=== PATIENT | female | born 1985 | race American Indian/Alaskan Native ===

== ENCOUNTER 2020-06-12 21:19 | Emergency (ER) | payer SELFPAY ==
--- NOTE | 2020-06-12 23:51 | Emergency Department Report ---
<GISELA BAR - Last Filed: 06/13/20 05:24> ED Chest Pain HPI - General Chief Complaint: Chest Pain Stated Complaint: CHEST PAIN PUI?: No Time Seen by Provider: 06/12/20 23:35 - Related Data Allergies Allergy/AdvReac Type Severity Reaction Status Date / Time No Known Allergies Allergy Unverified 06/12/20 22:38 ED Course - Reevaluation(s) Reevaluation #1: 06/13/20 03:16 Patient resting comfortably at this time, in no acute distress. CT scan of the chest negative for acute findings. Vital signs have remained stable. EKG unremarkable. Patient at low risk for major adverse cardiac event as per heart score. Patient suitable for discharge at this time with outpatient follow-up. MIN score - Min Score Age > 65: (0) No Aspirin use within the Past 7 Days: (0) No 3 or more CAD Risk Factors: (0) No 2 or more Angina events in past 24 hrs: (0) No Known CAD with more than 50% Stenosis: (0) No Elevated Cardiac Markers: (0) No ST Deviation Greater than 0.5mm: (0) No MIN Score: 0 ED Medical Decision Making - Lab Data Result diagrams: 06/12/20 23:48 06/12/20 23:48 Vital Signs 06/12/20 06/12/20 06/13/20 22:38 23:40 01:00 Temperature 98.2 F Pulse Rate 81 66 71 Respiratory 18 17 22 Rate Blood Pressure 129/82 135/79 127/75 [Right] O2 Sat by Pulse 100 100 100 Oximetry 06/13/20 02:57 Temperature Pulse Rate 82 Respiratory 16 Rate Blood Pressure 114/72 [Right] O2 Sat by Pulse 100 Oximetry Lab Results 06/12/20 06/12/20 06/12/20 Range/Units 23:48 23:48 23:48 WBC 8.0 (4.5-11.0) K/mm3 RBC 4.19 (3.65-5.03) M/mm3 Hgb 12.8 (10.1-14.3) gm/dl Hct 37.6 (30.3-42.9) % MCV 90 (79-97) fl MCH 31 (28-32) pg MCHC 34 (30-34) % RDW 14.0 (13.2-15.2) % Plt Count 248 (140-440) K/mm3 Lymph % (Auto) 50.9 H (13.4-35.0) % [place] % (Auto) 8.0 H (0.0-7.3) % Eos % (Auto) 3.1 (0.0-4.3) % Baso % (Auto) 0.6 (0.0-1.8) % Lymph # (Auto) 4.1 (1.2-5.4) K/mm3 [place] # (Auto) 0.6 (0.0-0.8) K/mm3 Eos # (Auto) 0.2 (0.0-0.4) K/mm3 Baso # (Auto) 0.0 (0.0-0.1) K/mm3 Seg Neutrophils % 37.4 L (40.0-70.0) % Seg Neutrophils # 3.0 (1.8-7.7) K/mm3 D-Dimer 256.70 H (0-234) ng/mlDDU Sodium 138 (137-145) mmol/L Potassium 3.8 (3.6-5.0) mmol/L Chloride 100.2 (98-107) mmol/L Carbon Dioxide 28 (22-30) mmol/L Anion Gap 14 mmol/L BUN 11 (7-17) mg/dL Creatinine 0.8 (0.6-1.2) mg/dL Estimated GFR > 60 ml/min BUN/Creatinine Ratio 14 % Glucose 88 (65-100) mg/dL Calcium 9.8 (8.4-10.2) mg/dL Total Bilirubin 0.30 (0.1-1.2) mg/dL AST 22 (5-40) units/L ALT 26 (7-56) units/L Alkaline Phosphatase 83 (35-129) units/L Troponin T < 0.010 (0.00-0.029) ng/mL Total Protein 7.4 (6.3-8.2) g/dL Albumin 4.8 (3.9-5) g/dL Albumin/Globulin Ratio 1.8 % HCG, Qual (Negative) 06/12/20 Range/Units 23:48 WBC (4.5-11.0) K/mm3 RBC (3.65-5.03) M/mm3 Hgb (10.1-14.3) gm/dl Hct (30.3-42.9) % MCV (79-97) fl MCH (28-32) pg MCHC (30-34) % RDW (13.2-15.2) % Plt Count (140-440) K/mm3 Lymph % (Auto) (13.4-35.0) % [place] % (Auto) (0.0-7.3) % Eos % (Auto) (0.0-4.3) % Baso % (Auto) (0.0-1.8) % Lymph # (Auto) (1.2-5.4) K/mm3 [place] # (Auto) (0.0-0.8) K/mm3 Eos # (Auto) (0.0-0.4) K/mm3 Baso # (Auto) (0.0-0.1) K/mm3 Seg Neutrophils % (40.0-70.0) % Seg Neutrophils # (1.8-7.7) K/mm3 D-Dimer (0-234) ng/mlDDU Sodium (137-145) mmol/L Potassium (3.6-5.0) mmol/L Chloride (98-107) mmol/L Carbon Dioxide (22-30) mmol/L Anion Gap mmol/L BUN (7-17) mg/dL Creatinine (0.6-1.2) mg/dL Estimated GFR ml/min BUN/Creatinine Ratio % Glucose (65-100) mg/dL Calcium (8.4-10.2) mg/dL Total Bilirubin (0.1-1.2) mg/dL AST (5-40) units/L ALT (7-56) units/L Alkaline Phosphatase (35-129) units/L Troponin T (0.00-0.029) ng/mL Total Protein (6.3-8.2) g/dL Albumin (3.9-5) g/dL Albumin/Globulin Ratio % HCG, Qual Negative (Negative) - Radiology Data Radiology results: report reviewed, image reviewed [facility] [address] [place] [address] Cat Scan Report Signed Patient: JARRETT SALAS MR#: [id number] [birth year] : 1985 Acct:[id number] Age/Sex: 34 / F ADM Date: 06/12/20 Loc: ED Attending Dr: Ordering Physician: GURPREET SANTOS DO Date of Service: 06/13/20 Procedure(s): CT angio chest Accession Number(s): [id number] cc: GURPREET SANTOS DO CTA CHEST WITH CONTRAST INDICATION / CLINICAL INFORMATION: Patient complains of midsternal chest pains; elevated D-dimer. TECHNIQUE: Axial CT images were obtained through the chest after injection of 100 cc Omnipaque 350 IV contrast. 3 plane MIP and/or 3D reconstructions were produced. All CT scans at this location are performed using CT dose reduction for ALARA by means of automated exposure control. COMPARISON: None available. FINDINGS: PULMONARY ARTERIES: There is excellent opacification of the pulmonary arterial system bilaterally without intraluminal filling defect to suggest acute PTE. THORACIC AORTA: No significant abnormality. HEART: No significant abnormality. CORONARY ARTERY CALCIFICATION: None. MEDIASTINUM / MARIA ISABEL: No significant abnormality. PLEURA: No pleural effusion. No pneumothorax. LUNGS: No acute air space or interstitial disease. ADDITIONAL FINDINGS: None. UPPER ABDOMEN: No acute findings. SKELETAL STRUCTURES : No significant osseous abnormality. IMPRESSION: 1. No CT evidence for pulmonary embolism. 2. No acute findings. Signer Name: Danielito Phillips MD Signed: 06/13/2020 2:58 AM Workstation Name: [id number] Transcribed By: RT Dictated By: Danielito Phillips MD Electronically Authenticated By: Danielito Phillips MD Signed Date/Time: 06/13/20 0258 ED Disposition Clinical Impression: Chest pain Qualifiers: Chest pain type: unspecified Qualified Code(s): R07.9 - Chest pain, unspecified Disposition: DC-01 TO HOME OR SELFCARE Is pt being admited?: No Does the pt Need Aspirin: No Condition: Good Instructions: Nonspecific Chest Pain, Adult Additional Instructions: Please follow-up with a primary care physician in the next few days. I have sent your contact information over to the [facility], and someone from their office should be contacting you shortly for close outpatient follow-up. 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 Coy. Return to the emergency department with any worsening of your symptoms, new or concerning symptoms not addressed during this current emergency department v isit, or with any acute distress. Referrals: PRIMARY CAREMD [Primary Care Provider] - 2-3 Days JS COY MD [Staff Physician] - 2-3 Days <GURPREET SANTOS S - Last Filed: 06/13/20 16:03> ED Chest Pain HPI - General Source: patient Mode of arrival: Ambulatory Limitations: No Limitations - History of Present Illness Initial Comments: This is a 34-year-old -[place] Citizen female presents to the emergency department with a complaint of having some midsternal chest discomfort that started earlier in the afternoon, but has since resolved. She denies any shortness of breath, nausea, vomiting, diaphoresis, lower extremity swelling, back pain. When the chest pain occurred it was low to moderate intensity, about a 4 out of 10, and did not radiate. Patient says that she wanted to come in to get checked out as she did have concern for the possibility of a blood clot as she had tummy tuck surgery about 1 month ago and flew to and from the [facility] to have the surgery done. She did have some postop immobility for a while. She denies any tobacco or illicit drug use. There is no family history of early heart attack or cardiac events in her nuclear family. She did not take anything for her symptoms prior to presentation today. Heart Score - HEART Score History: Slightly suspicious EKG: Normal Age: < 45 Risk factors: No known risk factors Troponin: < normal limit HEART Score: 0 - EKG Read Time Time EKG Completed: 22:47 EKG Read Time: 22:52 - Critical Actions Critical Actions: 0-3 pts:0.9-1.7%risk of adverse cardiac event.Candidate for discharge ED Review of Systems ROS: Stated complaint: CHEST PAIN Other details as noted in HPI Comment: All other systems reviewed and negative Constitutional: denies: chills, fever Eyes: denies: eye pain, vision change ENT: denies: ear pain, throat pain Respiratory: denies: shortness of breath Cardiovascular: chest pain. denies: palpitations, edema Gastrointestinal: denies: abdominal pain, vomiting Genitourinary: denies: dysuria, discharge Musculoskeletal: denies: back pain, arthralgia Skin: denies: rash, lesions Neurological: denies: headache, weakness ED Past Medical Hx - Past Medical History Previous Medical History?: Yes ED Physical Exam - General Limitations: No Limitations - Other Other exam information: GENERAL: The patient is well-developed well-nourished. HENT: Normocephalic. Atraumatic. Patient has moist mucous membranes. EYES: Extraocular motions are intact. NECK: Supple. Trachea is midline. CHEST/LUNGS: Clear to auscultation. There is no respiratory distress noted. HEART/CARDIOVASCULAR: Regular. There is no tachycardia. There is no murmur. ABDOMEN: Abdomen is soft, nontender. Patient has normal bowel sounds. There is no abdominal distention. SKIN: Skin is warm and dry. No appreciable edema to the bilateral lower extremities. NEURO: The patient is awake, alert, and oriented. The patient is cooperative. The patient has no focal neurologic deficits. Normal speech. MUSCULOSKELETAL: There is no tenderness or deformity. There is no limitation range of motion. ED Course Vital Signs 06/12/20 06/12/20 06/13/20 22:38 23:40 01:00 Temperature 98.2 F Pulse Rate 81 66 71 Respiratory 18 17 22 Rate Blood Pressure 129/82 135/79 127/75 [Right] O2 Sat by Pulse 100 100 100 Oximetry 06/13/20 02:57 Temperature Pulse Rate 82 Respiratory 16 Rate Blood Pressure 114/72 [Right] O2 Sat by Pulse 100 Oximetry - Reevaluation(s) Reevaluation #1: 06/12/20 23:51 My plan for this patient is to get a CBC, metabolic panel, troponin and a D- dimer level. The EKG does not show any morphology consistent with ST ovation myocardial infarction. She does not have any risk factors for coronary artery disease. The patient does appear to have some risk factors for thromboembolic disease including recent travel, recent surgery with postop immobility, and having an IUD in place. If the D-dimer is elevated the patient will have either a CT angiography of the chest or a VQ scan. A chest x-ray has been ordered but I am waiting for the results of serum test. As the patient is currently asymptomatic she does not need any analgesia at this time. MIN score - Min Score Age > 65: (0) No Aspirin use within the Past 7 Days: (0) No 3 or more CAD Risk Factors: (0) No 2 or more Angina events in past 24 hrs: (0) No ED Medical Decision Making - Lab Data Result diagrams: 06/12/20 23:48 06/12/20 23:48 - EKG Data -: EKG Interpreted by Me EKG shows normal: sinus rhythm, axis, intervals, QRS complexes, ST-T waves Rate: normal - EKG Data When compared to previous EKG there are: previous EKG unavailable Interpretation: normal EKG - Radiology Data Radiology results: report reviewed - Medical Decision Making This patient presented to the emergency department with a complaint of having some midsternal chest pain earlier in the day. She does not have any significant risk factors for ACS/CAD but does have some risk factors for thromboembolic disease. EKG did not show any morphology consistent with ST elevation myocardial infarction. Chest x-ray does not show any acute process. Labs have been mostly unremarkable except for a very mild, slightly elevated and equivocal D-dimer level. For this reason the patient had a CT angiography of the chest that did not show any pulmonary embolism or any other acute process. Vital signs reassuring throughout her ED course. Her contact information has been sent over to the [facility], and someone from their office should be contacting her shortly for close outpatient follow-up as per our hospitals low risk chest pain protocol. Critical Care Time: No Critical care attestation.: If time is entered above; I have spent that time in minutes in the direct care of this critically ill patient, excluding procedure time. ED Disposition Is pt being admited?: No
[2020-06-13 00:37] LABS: Basophils % (Auto) 0.6 % (0.0-1.8); Eosinophils # (Auto) 0.2 K/mm3 (0.0-0.4); Eosinophils % (Auto) 3.1 % (0.0-4.3); Hematocrit 37.6 % (30.3-42.9); Hemoglobin 12.8 gm/dl (10.1-14.3); Lymphocytes # (Auto) 4.1 K/mm3 (1.2-5.4); Lymphocytes % (Auto) 50.9 % (13.4-35.0); Mean Corpuscular HGB Conc 34 % (30-34); Mean Corpuscular Volume 90 fl (79-97); Monocytes # (Auto) 0.6 K/mm3 (0.0-0.8); Platelet Count 248 K/mm3 (140-440); Red Blood Count 4.19 M/mm3 (3.65-5.03)
--- NOTE | 2020-06-13 01:33 | XRay Report ---
CHEST 1 VIEW 06/13/2020 12:23 AM INDICATION / CLINICAL INFORMATION: Chest pain and tightness starting today. COMPARISON: None available. FINDINGS: SUPPORT DEVICES: None. HEART / MEDIASTINUM: The heart size and pulmonary vasculature are normal. The aorta is normal in [place]. LUNGS / PLEURA: No significant pulmonary or pleural abnormality. No pneumothorax. ADDITIONAL FINDINGS: No significant additional findings. IMPRESSION: No acute findings. Signer Name: Danielito Phillips MD Signed: 06/13/2020 1:29 AM Workstation Name: [id number]
[2020-06-13 02:03] LABS: Alanine Aminotransferase 26 units/L (7-56); Albumin 4.8 g/dL (3.9-5); BUN/Creatinine Ratio 14; Blood Urea Nitrogen 11 mg/dL (7-17); Calcium 9.8 mg/dL (8.4-10.2); Hemolysis Index 4
[2020-06-13 02:58] VITALS: BP 114/72
--- NOTE | 2020-06-13 03:03 | Cat Scan Report ---
CTA CHEST WITH CONTRAST INDICATION / CLINICAL INFORMATION: Patient complains of midsternal chest pains; elevated D-dimer. TECHNIQUE: Axial CT images were obtained through the chest after injection of 100 cc Omnipaque 350 IV contrast. 3 plane MIP and/or 3D reconstructions were produced. All CT scans at this location are per formed using CT dose reduction for ALARA by means of automated exposure control. COMPARISON: None available. FINDINGS: PULMONARY ARTERIES: There is excellent opacification of the pulmonary arterial system bilaterally wit hout intraluminal filling defect to suggest acute PTE. THORACIC AORTA: No significant abnormality. HEART: No significant abnormality. CORONARY ARTERY CALCIFICATION: None. MEDIASTINUM / MARIA ISABEL: No significant abnormality. PLEURA: No pleural effusion. No pneumothorax. LUNGS: No acute air space or interstitial disease. ADDITIONAL FINDINGS: None. UPPER ABDOMEN: No acute findings. SKELETAL STRUCTURES: No significant osseous abnormality. IMPRESSION: 1. No CT evidence for pulmonary embolism. 2. No acute findings. Signer Name: Danielito Phillips MD Signed: 06/13/2020 2:58 AM Workstation Name: [id number]
--- NOTE | 2020-06-15 10:37 | Electrocardiograph Report ---
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
== END 2020-06-13 03:48 | disposition home or self-care (01) ==
LOC: ED 21:19
DX: R07.89 Other chest pain (principal)
CPT/HCPCS: 36415; 71045; 71275; 80053; 84484; 84703; 85025; 85379; 93005; 99284; Q9967